=== PATIENT | male | born 1995 | race Caucasian/White ===

== ENCOUNTER 2020-11-30 09:23 | Emergency (ER) | payer SELFPAY ==
[~2020-11-30 09:23] MED LIST: ZOFRAN4 MG PO
== END 2020-11-30 11:50 | disposition home or self-care (01) ==
LOC: ER1 09:23
DX: M79.645 Pain in left finger(s) (principal); F17.210 Nicotine dependence, cigarettes, uncomplicated; Z23 Encounter for immunization
CPT/HCPCS: 90471; 90715; 99283